=== PATIENT | male | born 1955 | race Caucasian/White ===

== ENCOUNTER 2018-07-03 19:49 | Emergency (ER) | payer BC ==
--- OUTSIDE RECORDS SUMMARY | 2018-07-03 19:51 | XMS REPORT ---
:1955 [facility] [address] [place] [address] Care Team Providers Name Role Phone Unavailable Unavailable Unavailable Payers Payer Name Policy Type Policy Number Effective Date Expiration Date Problems This patient has no known problems. Allergies, Adverse Reactions, Alerts Allergy Allergy Status Severity Reaction(s) Onset Inactive Treating Comments Name Type Date Date Clinician codeine DA Active DC 2018-06 00:00:0 0 codeine DA Active U 2010-01 00:00:0 0 Medications This patient has no known medications. Results Test Description Test Time Test Comments Text Results Atomic Results Result Comments - XR 2018-06-15 FAX: Daniel Gudino NP [phone] [place]: St: CHEST 10:06:00 REG 2 V Name: UMAIR OBRIEN [facility] : 1955 Age/S: 62/M [address] # : [id number] [place]: [place] [address] Phys : Daniel Gudino COKE LOADER Acct : [id number] Dis Date: Status: REG ER PHONE #: [phone] Exam Date: 06/15/2018 0940 FAX #: [phone] Reason: FALL EXAMS: CPT CODE: [id number] XR CHEST 2 V 54760 HISTORY : Pain. COMPARISON: None available. Cervical spine series , 5 views: Cervical fusion from C6 and C7 with plate and bone graft in good anatomic alignment. Vertebral body heights are maintained. Marginal osteophyte at C6 anteriorly. No prevertebral soft tissue swelling. Cervical foramina remains widely patent bilaterally. Narrowed uncovertebral joints. Lung apices are clear. Lateral masses are well marginated. IMPRESSION: No acute fracture or dislocation. Cervical fusion at C6-C7 in good anatomic alignment. Patent foramina. AP and lateral view of the chest: No acute infiltrates, effusion or congestion. Cardiac and the mediastinal silhouette are normal. Posterior lateral left fifth and sixth rib fractures. IMPRESSION: No acute infiltrates, effusion or congestion. No pneumothorax is noted. Posterior lateral left fifth and sixth rib fractures. T-spine series, 3 views: No acute fracture or dislocation. Vertebral body heights are maintained. Disc spaces are preserved. Dextroscoliosis. No paravertebral lesions. IMPRESSION: No acute fracture or dislocation. Vertebral body heights are maintained. Lumbar spine series, 5 views: PAGE 1 Signed Report (CONTINUED) FAX: Daniel Gudino NP [place]: St: REG --------- Name: UMAIR OBRIEN [facility] : 1955 Age/S: 62/M [address] # : [id number] Loc: [place] [address] Phys : Daniel Gudino NP Acct : [id number] Dis Date: Status: REG ER PHONE #: [phone] Exam Date: 06/15/2018939 FAX #: [phone] Reason: FALL EXAMS: CPT CODE: [id number] XR CHEST 2 V 34470 <Continued> No acute fracture or dislocation. Vertebral body heights are maintained. Narrowed disc space at L5-S1 level. Bridging anterior osteophytes as well at this level. Vascular calcifications. No spondylolysis. No spondylolisthesis. SI joints are preserved. IMPRESSION : No acute fracture or dislocation vertebral body heights are maintained. DJD. Bilateral rib series: 6 views: Posterolateral left fifth and sixth rib fractures. IMPRESSION: Posterior lateral left fifth and sixth rib fractures. at 1006 Reported and signed by: Federico Huertas M.D. CC: Daniel Gudino NP Technologist: DUKE STEELE RT(R); Tariq Dillard RT(R) Trnwird Date/Time/By: 2018 (1006) : By: [email or web address] Orig Print D/T: S: 06/15/2018 (1003) PAGE 2 Signed Report - XR 2018-06-15 FAX: Daniel Gudino NP [phone] [place]: St: T-SPIN 10:06:00 REG E 3 Name: UMAIR OBRIEN [facility] : VIEWS 1955 Age/S: 62/M [address] [facility] Unit #: [id number] Loc: [place] [address] Phys : Daniel Gudino COKE LOADER Acct : [id number] Dis Date: Status: REG ER PHONE #: [phone] Exam Date: 06/15/2018 09 FAX #: [phone] Reason: FALL EXAMS: CPT CODE: [id number] XR T-SPINE 3 VIEWS 78728 HISTORY : Pain. COMPARISON: None available. Cervical spine series , 5 views: Cervical fusion from C6 and C7 with plate and bone graft in good anatomic alignment. Vertebral body heights are maintained. Marginal osteophyte at C6 anteriorly. No prevertebral soft tissue swelling. Cervical foramina remains widely patent bilaterally. Narrowed uncovertebral joints. Lung apices are clear. Lateral masses are well marginated. IMPRESSION: No acute fracture or dislocation. Cervical fusion at C6-C7 in good anatomic alignment. Patent foramina. AP and lateral view of the chest: No acute infiltrates, effusion or congestion. Cardiac and the mediastinal silhouette are normal. Posterior lateral left fifth and sixth rib fractures. IMPRESSION: No acute infiltrates, effusion or congestion. No pneumothorax is noted. Posterior lateral left fifth and sixth rib fractures. T-spine series, 3 views: No acute fracture or dislocation. Vertebral body heights are maintained. Disc spaces are preserved. Dextroscoliosis. No paravertebral lesions. IMPRESSION: No acute fracture or dislocation. Vertebral body heights are maintained. Lumbar spine series, 5 views: PAGE 1 Signed Report (CONTINUED) FAX: Daniel Gudino NP [phone] [place]: St: REG --------- Name: UMAIR OBRIEN [facility] : 1955 Age/S: 62/M [address] [facility] Unit # : [id number] Loc: [place] [address] Phys : Daniel Gudino NP Acct : [id number] Dis Date: Status: REG ER PHONE #: [phone] Exam Date: 06/15/2018919 FAX #: [phone] Reason: FALL EXAMS: CPT CODE: [id number] XR T-SPINE 3 VIEWS 25867 <Continued> No acute fracture or dislocation. Vertebral body heights are maintained. Narrowed disc space at L5-S1 level. Bridging anterior osteophytes as well at this level. Vascular calcifications. No spondylolysis. No spondylolisthesis. SI joints are preserved. IMPRESSION : No acute fracture or dislocation vertebral body heights are maintained. DJD. Bilateral rib series: 6 views: Posterolateral left fifth and sixth rib fractures. IMPRESSION: Posterior lateral left fifth and sixth rib fractures. at 1006 Reported and signed by: Federico Huertas M.D. CC: Daniel Gudino NP Technologist: DUKE STEELE, RT(R); Tariq Dillard RT(R) [facility] Date/Time/By: 2018 (1006) : By: [email or web address] Orig Print D/T: S: 06/15/2018 (1002) PAGE 2 Signed Report - XR 2018-06-15 FAX: Daniel Gudino NP [phone] [place]: St: L-SPIN 10:06:00 REG E 4 + Name: UMAIR OBRIEN [facility] : VIEWS 1955 Age/S: 62/M [address] [facility] Unit #: [id number] Loc: [place] [address] Phys : Daniel Gudino NP Acct : [id number] Dis Date: Status: REG ER PHONE #: [phone] Exam Date: 06/15/2018919 FAX #: [phone] Reason: FALL EXAMS: CPT CODE: [id number] XR L-SPINE 4 + VIEWS 23528 HISTORY : Pain. COMPARISON: None available. Cervical spine series , 5 views: Cervical fusion from C6 and C7 with plate and bone graft in good anatomic alignment. Vertebral body heights are maintained. Marginal osteophyte at C6 anteriorly. No prevertebral soft tissue swelling. Cervical foramina remains widely patent bilaterally. Narrowed uncovertebral joints. Lung apices are clear. Lateral masses are well marginated. IMPRESSION: No acute fracture or dislocation. Cervical fusion at C6-C7 in good anatomic alignment. Patent foramina. AP and lateral view of the chest: No acute infiltrates, effusion or congestion. Cardiac and the mediastinal silhouette are normal. Posterior lateral left fifth and sixth rib fractures. IMPRESSION: No acute infiltrates, effusion or congestion. No pneumothorax is noted. Posterior lateral left fifth and sixth rib fractures. T-spine series, 3 views: No acute fracture or dislocation. Vertebral body heights are maintained. Disc spaces are preserved. Dextroscoliosis. No paravertebral lesions. IMPRESSION: No acute fracture or dislocation. Vertebral body heights are maintained. Lumbar spine series, 5 views: PAGE 1 Signed Report (CONTINUED) FAX: Daniel Gudino NP [place]: St: REG --------- Name: UMAIR OBRIEN [facility] : 1955 Age/S: 62/M [address] [facility] Unit # : [id number] Loc: [place] [address] Phys : Daniel Gudino NP Acct : [id number] Dis Date: Status: REG ER PHONE #: [phone] Exam Date: 06/15/2018 09 FAX #: [phone] Reason: FALL EXAMS: CPT CODE: [id number] XR L-SPINE 4 + VIEWS 31976 <Continued> No acute fracture or dislocation. Vertebral body heights are maintained. Narrowed disc space at L5-S1 level. Bridging anterior osteophytes as well at this level. Vascular calcifications. No spondylolysis. No spondylolisthesis. SI joints are preserved. IMPRESSION : No acute fracture or dislocation vertebral body heights are maintained. DJD. Bilateral rib series: 6 views: Posterolateral left fifth and sixth rib fractures. IMPRESSION: Posterior lateral left fifth and sixth rib fractures. at 1006 Reported and signed by: Federico Huertas M.D. CC: Daniel Gudino NP Technologist: DUKE STEELE, RT(R); Tariq Dillard RT(R) [facility] Date/Time/By: 2018 (1006) : By: [email or web address] Orig Print D/T: S: 06/15/2018 (8075) PAGE 2 Signed Report - XR 2018-06-15 FAX: Daniel Gudino COKE LOADER [phone] [place]: St: RIBS 10:06:00 REG BI 3 V Name: UMAIR OBRIEN [facility] : 1955 Age/S: 62/M [address] [facility] Unit # : [id number] Loc: [place] [address] Phys : Daniel Gudino [employer]KE LOADER Acct : [id number] Dis Date: Status: REG ER PHONE #: [phone] Exam Date: 06/15/2018 0945 FAX #: [phone] Reason: FALL EXAMS: CPT CODE: [id number] XR RIBS BI 3 V 71573 HISTORY : Pain. COMPARISON: None available. Cervical spine series , 5 views: Cervical fusion from C6 and C7 with plate and bone graft in good anatomic alignment. Vertebral body heights are maintained. Marginal osteophyte at C6 anteriorly. No prevertebral soft tissue swelling. Cervical foramina remains widely patent bilaterally. Narrowed uncovertebral joints. Lung apices are clear. Lateral masses are well marginated. IMPRESSION: No acute fracture or dislocation. Cervical fusion at C6-C7 in good anatomic alignment. Patent foramina. AP and lateral view of the chest: No acute infiltrates, effusion or congestion. Cardiac and the mediastinal silhouette are normal. Posterior lateral left fifth and sixth rib fractures. IMPRESSION: No acute infiltrates, effusion or congestion. No pneumothorax is noted. Posterior lateral left fifth and sixth rib fractures. T-spine series, 3 views: No acute fracture or dislocation. Vertebral body heights are maintained. Disc spaces are preserved. Dextroscoliosis. No paravertebral lesions. IMPRESSION: No acute fracture or dislocation. Vertebral body heights are maintained. Lumbar spine series, 5 views: PAGE 1 Signed Report (CONTINUED) FAX: Daniel Gudino NP [place]: St: REG --------- Name: UMAIR OBRIEN [facility] : 1955 Age/S: 62/M [address] [facility] Unit # : [id number] Loc: [place] [address] Phys : Daniel Gudino NP Acct : [id number] Dis Date: Status: REG ER PHONE #: [phone] Exam Date: 06/15/2018944 FAX #: [phone] Reason: FALL EXAMS: CPT CODE: [id number] XR RIBS BI 3 V 21252 <Continued> No acute fracture or dislocation. Vertebral body heights are maintained. Narrowed disc space at L5-S1 level. Bridging anterior osteophytes as well at this level. Vascular calcifications. No spondylolysis. No spondylolisthesis. SI joints are preserved. IMPRESSION : No acute fracture or dislocation vertebral body heights are maintained. DJD. Bilateral rib series: 6 views: Posterolateral left fifth and sixth rib fractures. IMPRESSION: Posterior lateral left fifth and sixth rib fractures. at 1006 Reported and signed by: Federico Huertas M.D. CC: Daniel Gudino NP Technologist: DUKE STEELE, RT(R); Tariq Dillard RT(R) Trnscrd Date/Time/By: 2018 (1006) : By: [email or web address] Orig Print D/T: S: 06/15/2018 (6564) PAGE 2 Signed Report - XR 2018-06-15 FAX: Daniel Gudino NP [phone] [place]: St: C-SPIN 10:06:00 REG E 4-5 Name: UMAIR OBRIEN [facility] : V 1955 Age/S: 62/M [address] [facility] Unit # : [id number] Loc: [place] [address] Phys : Daniel Gudino COKE LOADER Acct : [id number] Dis Date: Status: REG ER PHONE #: [phone] Exam Date: 06/15/2018929 FAX #: [phone] Reason: FALL EXAMS: CPT CODE: [id number] XR C-SPINE 4-5 V 03211 HISTORY : Pain. COMPARISON: None available. Cervical spine series , 5 views: Cervical fusion from C6 and C7 with plate and bone graft in good anatomic alignment. Vertebral body heights are maintained. Marginal osteophyte at C6 anteriorly. No prevertebral soft tissue swelling. Cervical foramina remains widely patent bilaterally. Narrowed uncovertebral joints. Lung apices are clear. Lateral masses are well marginated. IMPRESSION: No acute fracture or dislocation. Cervical fusion at C6-C7 in good anatomic alignment. Patent foramina. AP and lateral view of the chest: No acute infiltrates, effusion or congestion. Cardiac and the mediastinal silhouette are normal. Posterior lateral left fifth and sixth rib fractures. IMPRESSION: No acute infiltrates, effusion or congestion. No pneumothorax is noted. Posterior lateral left fifth and sixth rib fractures. T-spine series, 3 views: No acute fracture or dislocation. Vertebral body heights are maintained. Disc spaces are preserved. Dextroscoliosis. No paravertebral lesions. IMPRESSION: No acute fracture or dislocation. Vertebral body heights are maintained. Lumbar spine series, 5 views: PAGE 1 Signed Report (CONTINUED) FAX: Daniel Gudino NP [place]: St: REG --------- Name: UMAIR OBRIEN [facility] : 1955 Age/S: 62/M [address] [facility] Unit # : [id number] Loc: [place] [address] Phys : Daniel Gudino NP Acct : [id number] Dis Date: Status: REG ER PHONE #: [phone] Exam Date: 06/15/2018929 FAX #: [phone] Reason: FALL EXAMS: CPT CODE: [id number] XR C-SPINE 4-5 V 10068 <Continued> No acute fracture or dislocation. Vertebral body heights are maintained. Narrowed disc space at L5-S1 level. Bridging anterior osteophytes as well at this level. Vascular calcifications. No spondylolysis. No spondylolisthesis. SI joints are preserved. IMPRESSION : No acute fracture or dislocation vertebral body heights are maintained. DJD. Bilateral rib series: 6 views: Posterolateral left fifth and sixth rib fractures. IMPRESSION: Posterior lateral left fifth and sixth rib fractures. at 1006 Reported and signed by: Federico Huertas M.D. CC: Daniel Gudino NP Technologist: DUKE STEELE, RT(R); Tariq Dillard RT(R) [facility] Date/Time/By: 2018 (1006) : By: [email or web address] Orig Print D/T: S: 06/15/2018 (6127) PAGE 2 Signed Report
--- NOTE | 2018-07-03 20:56 | EDPHYS ---
Physician Documentation [facility] Name: Jerman Hdz Age: 62 yrs Sex: Male : 1955 Arrival Date: 07/03/2018 Time: 19:52 Bed 7 Private MD: Domingo Gill E ED Physician Nagi Veloz HPI: 07/03 20:43 This 62 yrs old Male presents to ER via Ambulatory with complaints of pkl Laceration To Foot. 20:43 The patient presents with a laceration. The complaints affect the left foot. Context: pkl resulted from the patient falling, Patient fell on the rocks this morning at about 10 AM. Said he is diabetic and worried about infection. Historical: - Allergies: 19:57 No Known Allergies; la1 - PMHx: 19:57 Diabetes - NIDDM; la1 - Immunization history:: Adult Immunizations up to date. - Social history:: Smoking status: Patient/guardian denies using tobacco. - Ebola Screening: : No symptoms or risks identified at this time. ROS: 20:43 MS/extremity: Positive for Superficial lacerations dorsum left foot.. pkl 20:43 Eyes: Negative for injury, pain, redness, and discharge, ENT: Negative for injury, pain, and discharge, Neck: Negative for injury, pain, and swelling, Cardiovascular: Negative for chest pain, palpitations, and edema, Respiratory: Negative for shortness of breath, cough, wheezing, and pleuritic chest pain, Abdomen/GI: Negative for abdominal pain, nausea, vomiting, diarrhea, and constipation, Back: Negative for injury and pain, : Negative for injury, bleeding, discharge, and swelling. 20:43 MS/extremity: Positive for superficial laceration dorsum left foot.. 20:43 Neuro: Negative for altered mental status. Exam: 20:43 Head/Face: Normocephalic, atraumatic. Eyes: Pupils equal round and reactive to light, pkl extra-ocular motions intact. Lids and lashes normal. Conjunctiva and sclera are non-icteric and not injected. Cornea within normal limits. Periorbital areas with no swelling, redness, or edema. ENT: Nares patent. No nasal discharge, no septal abnormalities noted. Tympanic membranes are normal and external auditory canals are clear. Oropharynx with no redness, swelling, or masses, exudates, or evidence of obstruction, uvula midline. Mucous membranes moist. Neck: Trachea midline, no thyromegaly or masses palpated, and no cervical lymphadenopathy. Supple, full range of motion without nuchal rigidity, or vertebral point tenderness. No Meningismus. Chest/axilla: Normal chest wall appearance and motion. Nontender with no deformity. No lesions are appreciated. Cardiovascular: Regular rate and rhythm with a normal S1 and S2. No gallops, murmurs, or rubs. Normal PMI, no JVD. No pulse deficits. Respiratory: Lungs have equal breath sounds bilaterally, clear to auscultation and percussion. No rales, rhonchi or wheezes noted. No increased work of breathing, no retractions or nasal flaring. Abdomen/GI: Soft, non-tender, with normal bowel sounds. No distension or tympany. No guarding or rebound. No evidence of tenderness throughout. Back: No spinal tenderness. No costovertebral tenderness. Full range of motion. Neuro: Awake and alert, GCS 15, oriented to person, place, time, and situation. Cranial nerves II-XII grossly intact. Motor strength 5/5 in all extremities. Sensory grossly intact. Cerebellar exam normal. Normal gait. 20:43 Musculoskeletal/extremity: Extremities: grossly normal except: noted in the left foot: superficial lacerations dorsum left foot. No active bleeding noted. Vital Signs: 19:57 BP 145 / 79; Pulse 81; Resp 16; Temp 98.4; Pulse Ox 98% on R/A; Weight 102.06 kg; la1 Height 6 ft. 2 in. (187.96 cm); 21:00 BP 120 / 77; Pulse 71; Resp 17; Temp 98.4; Pulse Ox 99% on R/A; rr5 19:57 Body Mass Index 28.89 (102.06 kg, 187.96 cm) la1 MDM: 20:34 Patient medically screened. pkl 20:43 Data reviewed: vital signs, nurses notes. pkl Administered Medications: 20:51 Drug: Tetanus-Diphtheria Toxoid Adult 0.5 ml {Supercharge Repair Supervisor: Bitrockr. Exp: rr5 04/08/2020. Lot #: [id number]. } Route: IM; Site: right deltoid; 21:10 Follow up: Response: Medication administered at discharge. rr5 21:00 Drug: KeFLEX 500 mg Route: PO; rr5 21:05 Follow up: Response: Medication administered at discharge. rr5 Disposition: 07/03/18 20:56 Discharged to Home. Impression: Superficial lacerations left foot. Diabetes. - Condition is Stable. - Prescriptions for Keflex 500 mg Oral Capsule - take 1 capsule by ORAL route every 6 hours for 7 days; 28 capsule. - Medication Reconciliation Form, Thank You Letter, Antibiotic Education, Prescription Opioid Use form. - Follow up: Domingo Gill MD; When: 2 - 3 days; Reason: Re-evaluation by your physician. - Problem is new. - Symptoms have improved. Signatures: Dispatcher [employer] EDMS Nagi Veloz MD MD pkl Wang Faria RN RN la1 Abram Moreno RN RN rr5 Corrections: (The following items were deleted from the chart) 21:17 20:56 07/03/2018 20:56 Discharged to Home. Impression: Superficial lacerations left rr5 foot. Diabetes. Condition is Stable. Forms are Medication Reconciliation Form, Thank You Letter, Antibiotic Education, Prescription Opioid Use. Follow up: Domingo Gill; When: 2 - 3 days; Reason: Re-evaluation by your physician. Problem is new. Symptoms have improved. pkl
--- NOTE | 2018-07-03 20:56 | ER ---
Nurse's Notes [facility] Name: Jerman Hdz Age: 62 yrs Sex: Male : 1955 Arrival Date: 07/03/2018 Time: 19:52 Bed 7 Private MD: Domingo Gill E Diagnosis: Superficial lacerations left foot. Diabetes Presentation: 07/03 19:56 Presenting complaint: Patient states: This morning I slipped on the rocks and cut my la1 left foot, I am diabetic so I am worried about infection. Transition of care: patient was not received from another setting of care. Complicating Factors: There are no complicating factors for this patient. Onset of symptoms was July 03, 2018. Risk Assessment: Do you want to hurt yourself or someone else? Patient reports no desire to harm self or others. Initial Sepsis Screen: Does the patient meet any 2 criteria? No. Patient's initial sepsis screen is negative. Does the patient have a suspected source of infection? No. Patient's initial sepsis screen is negative. Care prior to arrival: None. 19:56 Method Of Arrival: Ambulatory la1 19:56 Acuity: KATY 4 la1 Triage Assessment: 20:00 General: Appears in no apparent distress. comfortable, Behavior is calm, cooperative, rr5 appropriate for age. Historical: - Allergies: 19:57 No Known Allergies; la1 - PMHx: 19:57 Diabetes - NIDDM; la1 - Immunization history:: Adult Immunizations up to date. - Social history:: Smoking status: Patient/guardian denies using tobacco. - Ebola Screening: : No symptoms or risks identified at this time. Screenin:00 Abuse screen: Denies threats or abuse. Denies injuries from another. Nutritional rr5 screening: No deficits noted. Tuberculosis screening: No symptoms or risk factors identified. Fall Risk None identified. Total King Fall Scale indicates No Risk (0-24 pts). Assessment: 20:00 General: Appears in no apparent distress. comfortable, Behavior is calm, cooperative, rr5 appropriate for age. Pain: Complains of pain in right foot and left foot Pain does not radiate. Pain Quality of pain is described as aching, Pain began suddenly, Is intermittent. 20:00 Neuro: Level of Consciousness is awake, alert, obeys commands, Oriented to person, rr5 place, time, situation, Appropriate for age. Cardiovascular: Capillary refill < 3 seconds Patient's skin is warm and dry. Respiratory: Airway is patent Respiratory effort is even, unlabored, Respiratory pattern is regular, symmetrical. GI: No signs and/or symptoms were reported involving the gastrointestinal system. : No signs and/or symptoms were reported regarding the genitourinary system. EENT: No signs and/or symptoms were reported regarding the EENT system. Derm: Wound noted dorsum of left foot Wound is abrasion swelling right big toe. Musculoskeletal: Swelling present in right first toe. Injury Description: Abrasion sustained to left foot is. 20:50 Reassessment: patient refused for Xray of the foot. ED provider aware. rr5 21:10 Reassessment: Patient appears in no apparent distress at this time. Patient is alert, rr5 oriented x 3, equal unlabored respirations, skin warm/dry/pink. discharge instruction given and explained without complaints made. Vital Signs: 19:57 BP 145 / 79; Pulse 81; Resp 16; Temp 98.4; Pulse Ox 98% on R/A; Weight 102.06 kg; la1 Height 6 ft. 2 in. (187.96 cm); 21:00 BP 120 / 77; Pulse 71; Resp 17; Temp 98.4; Pulse Ox 99% on R/A; rr5 19:57 Body Mass Index 28.89 (102.06 kg, 187.96 cm) la1 ED Course: 19:52 Patient arrived in ED. es 19:52 oDmingo Gill MD is Private Physician. es 19:56 Triage completed. la1 19:57 Arm band placed on left wrist. la1 20:00 Patient has correct armband on for positive identification. Bed in low position. Call rr5 light in reach. 20:34 Nagi Veloz MD is Attending Physician. pkl 20:37 Abram Moreno RN is Primary Nurse. rr5 20:50 Dressings: Kerlix 4X4s X 1; left foot triple antibiotic applied. rr5 20:50 Irrigation of abrasion on left foot irrigated with normal saline Patient tolerated well.rr5 20:55 Domingo Gill MD is Referral Physician. pkl 21:10 No provider procedures requiring assistance completed. Patient did not have IV access rr5 during this emergency room visit. Administered Medications: 20:51 Drug: Tetanus-Diphtheria Toxoid Adult 0.5 ml {Vessel Engineer: JJ [employer]. Exp: rr5 04/08/2020. Lot #: [id number]. } Route: IM; Site: right deltoid; 21:10 Follow up: Response: Medication administered at discharge. rr5 21:00 Drug: KeFLEX 500 mg Route: PO; rr5 21:05 Follow up: Response: Medication administered at discharge. rr5 Outcome: 20:56 Discharge ordered by . kuldeep 21:10 Discharged to home ambulatory. rr5 21:10 Condition: stable 21:10 Discharge instructions given to patient, Instructed on discharge instructions, follow up and referral plans. medication usage, Demonstrated understanding of instructions, follow-up care, medications, Prescriptions given X 1. 21:17 Patient left the ED. rr5 Signatures: Nagi Veloz MD MD pkl Salyer, Edna es Attema, Lee RN RN la1 Abram Moreno RN RN rr5
[2018-07-03] MEDS ORDERED: TETANUS & DIPHTHERIA TOX,ADULT 0.5 ML VIAL ONE (20:59)
[2018-07-03] MEDS ORDERED: levETIRAcetam 500 MG TAB ONE (21:14)
== END 2018-07-03 21:17 | disposition home or self-care (01) ==
LOC: ER 19:49
DX: S91.312A Laceration without foreign body, left foot, initial encounter (principal); W19.XXXA Unspecified fall, initial encounter; E11.9 Type 2 diabetes mellitus without complications; Z23 Encounter for immunization
CPT/HCPCS: 90471; 90714; 99283

== ENCOUNTER 2018-07-04 03:01 | Emergency (ER) | payer BC ==
--- OUTSIDE RECORDS SUMMARY | 2018-07-04 03:03 | XMS REPORT ---
:1955 [facility] [address] [place] [address] Care Team Providers Name Role Phone Unavailable Unavailable Unavailable Payers Payer Name Policy Type Policy Number Effective Date Expiration Date Problems This patient has no known problems. Allergies, Adverse Reactions, Alerts Allergy Allergy Status Severity Reaction(s) Onset Inactive Treating Comments Name Type Date Date Clinician codeine DA Active [place] 2018-06 00:00:0 0 codeine DA Active U 2010-01 00:00:0 0 Medications This patient has no known medications. Results Test Description Test Time Test Comments Text Results Atomic Results Result Comments - XR 2018-06-15 FAX: Daniel Gudino NP [phone] [place]: St: CHEST 10:06:00 REG 2 V Name: UMAIR [facility]RI[facility] : 1955 Age/S: 62/M [address] Unit # : [id number] Loc: [place] [address] Phys : Daniel Gudino [employer] Acct : [id number] Dis Date: Status: REG ER PHONE #: [phone] Exam Date: 06/15/2018 0940 FAX #: [phone] Reason: FALL EXAMS: CPT CODE: [id number] XR CHEST 2 V 19111 HISTORY : Pain. COMPARISON: None available. Cervical [...] Signed Report (CONTINUED) FAX: Daniel Gudino NP [place]: St: REG --------- Name: UMAIR [facility]RIEN [facility] : 1955 Age/S: 62/M [address] Unit # : [id number] Loc: [place] [address] Phys : Daniel Gudino NP Acct : [id number] Dis Date: Status: REG ER PHONE #: [phone] Exam Date: 06/15/2018939 FAX #: [phone] Reason: FALL EXAMS: CPT CODE: [id number] XR CHEST 2 V 68996 <Continued> No acute fracture or dislocation. Vertebral [...] Technologist: DUKE STEELE RT(R); Tariq Dillard RT(R) Trnarrd Date/Time/By: 2018 (1006) : By: [email or web address] Orig Print D/T: S: 06/15/2018 (1001) PAGE 2 Signed Report - XR 2018-06-15 FAX: Daniel Gudino NP [phone] [place]: St: T-SPIN 10:06:00 REG E 3 Name: UMAIR [facility]RI[facility] : VIEWS 1955 Age/S: 62/M [address] [facility] Unit #: [id number] Loc: [place] [address] Phys : Daniel Gudino [employer] Acct : [id number] Dis Date: Status: REG ER PHONE #: [phone] Exam Date: 06/15/2018 09 FAX #: [phone] Reason: FALL EXAMS: CPT CODE: [id number] XR T-SPINE 3 VIEWS 26357 HISTORY : Pain. COMPARISON: None available. Cervical [...] Signed Report (CONTINUED) FAX: Daniel Gudino NP [phone] [place]: St: REG --------- Name: [facility]MAIR [facility]RI[facility] : 1955 Age/S: 62/M [address] [facility] Unit # : [id number] Loc: [place] [address] Phys : Daniel Gudino NP Acct : [id number] Dis Date: Status: REG ER PHONE #: [phone] Exam Date: 06/15/2018919 FAX #: [phone] Reason: FALL EXAMS: CPT CODE: [id number] XR T-SPINE 3 VIEWS 43351 <Continued> No acute fracture or dislocation. Vertebral [...] Technologist: DUKE STEELE, RT(R); Tariq Dillard RT(R) [facility] Date/Time/By: 2018 (1006) : By: [email or web address] Orig Print D/T: S: 06/15/2018 (1001) PAGE 2 Signed Report - XR 2018-06-15 FAX: Daniel Gudino NP [phone] [place]: St: L-SPIN 10:06:00 REG E 4 + Name: UMAIR [facility]RI[facility] : VIEWS 1955 Age/S: 62/M [address] [facility] Unit #: [id number] Loc: [place] [address] Phys : Daniel Gudino NP Acct : [id number] Dis Date: Status: REG ER PHONE #: [phone] Exam Date: 06/15/2018919 FAX #: [phone] Reason: FALL EXAMS: CPT CODE: [id number] XR L-SPINE 4 + VIEWS 81332 HISTORY : Pain. COMPARISON: None available. Cervical [...] Signed Report (CONTINUED) FAX: Daniel Gudino NP [place]: St: REG --------- Name: [facility]MAIR [facility]RI[facility] : 1955 Age/S: 62/M [address] [facility] Unit # : [id number] Loc: [place] [address] Phys : Daniel Gudino NP Acct : [id number] Dis Date: Status: REG ER PHONE #: [phone] Exam Date: 06/15/2018 09 FAX #: [phone] Reason: FALL EXAMS: CPT CODE: [id number] XR L-SPINE 4 + VIEWS 75263 <Continued> No acute fracture or dislocation. Vertebral [...] By: [email or web address] Orig Print D/T: S: 06/15/2018 (3411) PAGE 2 Signed Report - XR 2018-06-15 FAX: Daniel Gudino [employer] [phone] [place]: St: RIBS 10:06:00 REG BI 3 V Name: [facility]MAIR [facility]RI[facility] : 1955 Age/S: 62/M [address] [facility] Unit # : [id number] Loc: [place] [address] Phys : Daniel Gudino [employer] Acct : [id number] Dis Date: Status: REG ER PHONE #: [phone] Exam Date: 06/15/2018 0945 FAX #: [phone] Reason: FALL EXAMS: CPT CODE: [id number] XR RIBS BI 3 V 32540 HISTORY : Pain. COMPARISON: None available. Cervical [...] Signed Report (CONTINUED) FAX: Daniel Gudino NP [place]: St: REG --------- Name: [facility]MAIR [facility]RI[facility] : 1955 Age/S: 62/M [address] [facility] Unit # : [id number] Loc: [place] [address] Phys : Daniel Gudino NP Acct : [id number] Dis Date: Status: REG ER PHONE #: [phone] Exam Date: 06/15/2018944 FAX #: [phone] Reason: FALL EXAMS: CPT CODE: [id number] XR RIBS BI 3 V 91878 <Continued> No acute fracture or dislocation. Vertebral [...] signed by: Federico Huertas M.D. CC: Daniel Gduino NP Technologist: DUKE STEELE, RT(R); Tariq Dillard RT(R) Trnscrd Date/Time/By: 2018 (1006) : By: [email or web address] Orig Print D/T: S: 06/15/2018 (0549) PAGE 2 Signed Report - XR 2018-06-15 FAX: Daniel Gudino NP [phone] [place]: St: C-SPIN 10:06:00 REG E 4-5 Name: [facility]MAIR [facility]RI[facility] : V 1955 Age/S: 62/M [address] [facility] Unit # : [id number] Loc: [place] [address] Phys : Daniel Gudino [employer] Acct : [id number] Dis Date: Status: REG ER PHONE #: [phone] Exam Date: 06/15/2018929 FAX #: [phone] Reason: FALL EXAMS: CPT CODE: [id number] XR C-SPINE 4-5 V 86157 HISTORY : Pain. COMPARISON: None available. Cervical [...] Signed Report (CONTINUED) FAX: Daniel Gudino NP [phone] [place]: St: REG --------- Name: [facility]MAIR [facility]RI[facility] : 1955 Age/S: 62/M [address] [facility] Unit # : [id number] Loc: [place] [address] Phys : Daniel Gudino NP Acct : [id number] Dis Date: Status: REG ER PHONE #: [phone] Exam Date: 06/15/2018929 FAX #: [phone] Reason: FALL EXAMS: CPT CODE: [id number] XR C-SPINE 4-5 V 33584 <Continued> No acute fracture or dislocation. Vertebral [...] By: [email or web address] Orig Print D/T: S: 06/15/2018 (1561) PAGE 2 Signed Report
--- NOTE | 2018-07-04 04:50 | ER ---
Nurse's Notes [facility] Name: Jerman Hdz Age: 62 yrs Sex: Male : 1955 Arrival Date: 07/04/2018 Time: 03:03 Bed 15 Private MD: Domingo Gill E Diagnosis: Presentation: 07/04 03:49 Presenting complaint: Patient states: Was seen here earlier tonight and treated for tl2 lacerations to left foot, pt was given antibiotics in ER and given a prescription. States he was unable to fill prescription tonight and is now in severe pain. Pt states he has diabetes and is worried about infection. Transition of care: patient was not received from another setting of care. Onset of symptoms was July 03, 2018. Risk Assessment: Do you want to hurt yourself or someone else? Patient reports no desire to harm self or others. Initial Sepsis Screen: Does the patient meet any 2 criteria? No. Patient's initial sepsis screen is negative. Does the patient have a suspected source of infection? No. Patient's initial sepsis screen is negative. Care prior to arrival: None. 03:49 Method Of Arrival: Ambulatory tl2 03:49 Acuity: KATY 4 tl2 Triage Assessment: 03:54 General: Appears in no apparent distress. uncomfortable, Behavior is calm, cooperative, tl2 appropriate for age. Pain: Complains of pain in left foot. Neuro: Level of Consciousness is awake, alert, obeys commands, Oriented to person, place, time, situation. Respiratory: Airway is patent Respiratory effort is even, unlabored, Respiratory pattern is regular, symmetrical. GI: No signs and/or symptoms were reported involving the gastrointestinal system. : No signs and/or symptoms were reported regarding the genitourinary system. Derm: Skin is pink, warm \T\ dry. Wound noted Other: lacerations to top of left foot, wound dressed from earlier visit. Historical: - Allergies: 03:54 No Known Allergies; tl2 - Home Meds: 03:54 losartan oral oral [Active]; Lantus Sub-Q [Active]; Trulicity subcutaneous subcutaneous tl2 [Active]; fenofibrate oral oral [Active]; - PMHx: 03:54 Diabetes - NIDDM; Hypertension; tl2 - Immunization history:: Adult Immunizations up to date. - Social history:: Smoking status: Patient/guardian denies using tobacco. - Ebola Screening: : No symptoms or risks identified at this time. Screenin:55 Abuse screen: Denies threats or abuse. Nutritional screening: No deficits noted. tl2 Tuberculosis screening: No symptoms or risk factors identified. Fall Risk None identified. Assessment: 03:54 General: see triage assessment. tl2 04:45 Reassessment: Patient appears in no apparent distress at this time. Patient and/or tl2 family updated on plan of care and expected duration. Pain level reassessed. Patient is alert, oriented x 3, equal unlabored respirations, skin warm/dry/pink. awaiting MD assessment. 04:46 Reassessment: Pt eloped due to wait time. tl2 Vital Signs: 03:54 BP 116 / 67; Pulse 89; Resp 18; Temp 98.3(O); Pulse Ox 98% on R/A; Weight 90.72 kg; tl2 Height 5 ft. 11 in. (180.34 cm); Pain 9/10; 04:45 BP 122 / 77; Pulse 88; Resp 18; Pulse Ox 98% on R/A; tl2 03:54 Body Mass Index 27.89 (90.72 kg, 180.34 cm) tl2 ED Course: 03:03 Patient arrived in ED. am2 03:03 Domingo Gill MD is Private Physician. am2 03:50 Triage completed. tl2 03:54 Arm band placed on right wrist. tl2 03:55 Patient has correct armband on for positive identification. Bed in low position. Call tl2 light in reach. Side rails up X 1. Administered Medications: No medications were administered Outcome: 04:50 Patient left the ED. tl2 Signatures: Jocelyn Santillan RN RN tl2 Deann Arauz am2
== END 2018-07-04 04:50 | disposition left against medical advice (07) ==
LOC: ER 03:01
DX: S91.312A Laceration without foreign body, left foot, initial encounter (principal); E11.9 Type 2 diabetes mellitus without complications; I10 Essential (primary) hypertension; Z53.21 Procedure and treatment not carried out due to patient leaving prior to being seen by health care provider
CPT/HCPCS: 99281